=== PATIENT | female | born 2005 | race Caucasian/White ===

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

== ENCOUNTER 2025-01-26 14:22 | Emergency (ER) | payer MEDICAID, SELFPAY ==
[2025-01-26 14:27] VITALS: BP 158/117; PULSE 116; TEMP 36.7; O2SAT 98; BMI 25.0
--- NOTE | 2025-01-26 14:31 | ECG_ITS ---
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 Measurements Intervals [place] Rate: 119 P: 52 NM: 134 QRS: 46 QRSD: 84 T: 43 QT: 302 QTc: 426 Interpretive Statements SINUS TACHYCARDIA MINIMAL ST DEPRESSION [0.025+ mV ST DEPRESSION] ABNORMAL RHYTHM ECG INTERPRETATION BASED ON A DEFAULT AGE OF 40 YEARS No previous ECG available for comparison Electronically Signed On 01-26-2025 21:41:57 CDT by Ronal Mayo M.D. [id number]
[2025-01-26 18:05] VITALS: PULSE 96; RESP 17; O2SAT 100
[2025-01-26 18:59] LABS: HCG Qualitative Urine. Negative (Negative)
[2025-01-26 19:00] VITALS: BP 133/83; PULSE 92; RESP 20; O2SAT 98
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
[2025-01-26 19:05] LABS: Basophils % 0.4 %; Eosinophils # 0.1 10^3/uL (0.0-0.8); Eosinophils % 0.8 %; Hematocrit 39.9 % (36-47); Lymphocytes # 3.5 10^3/uL (1.5-6.5); Lymphocytes % 33.6 %; Mean Corpuscular HGB Conc 31.8 g/dL (30-55); Mean Corpuscular Hemoglobin 25.3 pg (27-33); Mean Corpuscular Volume 79.6 fl (85-98); Mean Platelet Volume 11.1 fL (7.4-10.4); Monocytes # 0.5 10^3/uL (0.2-0.9); Monocytes % 4.4 %; Neutrophils # 6.23 10^3/uL (1.8-8.0); Neutrophils % 60.5 %; Nucleated Red Blood Cells % 0 %; Platelet Count 273 10^3/cmm (157-399); Red Blood Count 5.01 10^6/uL (3.85-5.65); White Blood Count 10.28 10^3/uL (4.5-13.0)
[2025-01-26] MEDS: LORazepam 1 mg Tablet PO (19:10)
[2025-01-26] MEDS: sodium chloride 0.9% 1,000 ML 999 ML IV (19:11)
[2025-01-26 19:28] LABS: Troponin(5th) Baseline < 6 ng/L (0-10)
[2025-01-26 19:30] VITALS: BP 119/86; PULSE 76; RESP 14; O2SAT 95
--- NOTE | 2025-01-26 19:35 | W.ED.ARRPALP ---
HPI - Arrhythmia/Palpitations General: Chief Complaint: Arrhythmia/Palpitations Stated Complaint: chest pain Time Seen by Provider: 01/26/25 18:20 Source: patient Mode of arrival: ambulatory Limitations: no limitations History of Present Illness: Patient is a 19-year-old female who presents the emergency department complaining of chest pain beginning this morning at 0900. Patient states she had just drank an energy drink, when she had sudden onset central chest pain that felt like a brick on my chest. Also noted associated palpitations and shortness of breath. States that she has felt weird all day, pain at points is radiated into her neck and down her left arm, and states that currently her toes are tingling. Notes a history of anxiety and multiple panic attacks, states that she has figured that that is what was causing this but is concerned of the longevity of symptoms. Does not take anything for anxiety or panic. Also denies any pertinent cardiac history, also denying any family history of cardiac issues before the age of 30. Does not report anything specifically making her chest pain better or worse, does state that it seems to have eased up at this time. She is on control, SpO2 98% on room air at this time. Denies possibility of . Other than altering periods of tachycardia during exam, all of her vitals unremarkable. MD complaint: palpitations Onset (ago): hour(s) Duration: constant Severity: moderate Context: occurred during rest Arrhythmia history: on anti-coagulants Associated symptoms: Reports anxiety and short of breath; Deny nausea or vomiting Related Data Home Medications ?Medication ?Instructions ?Recorded ?Confirmed norgestimate-ethinyl estradiol ea PO 05/17/23 05/17/23 0.18 mg/0.215mg/0.25mg-35 mcg(28)tablet (Tri-Sprintec (28)) Allergies Allergy/AdvReac Type Severity Reaction Status Date / Time No Known Allergies Allergy Verified 01/26/25 14:35 Review of Systems General: Reports: 10 or more systems reviewed and unremarkable except in HPI and below Const: Denies: fever(s), chills or fatigue Eyes: Denies: change in vision ENMT: Denies: throat pain, ear or mastoid pain or nasal discharge Card: Reports: chest pain and palpitations; Denies: swelling of feet/ankles or lightheadedness Resp: Reports: dyspnea; Denies: productive cough or wheezing GI: Denies: abdominal pain, nausea, vomiting, diarrhea or constipation : Denies: flank pain, difficulty voiding, dysuria or urinary frequency Musc: Denies: neck pain, back pain or joint pain Skin/Breast: Denies: rash Neuro: Reports: numbness in extremities; Denies: headache(s) or weakness in extremities Psych: Reports: anxiety Physical Exam Const: COMMON NORMALS: patient oriented x3 and no limitations GENERAL APPEARANCE: cooperative, well developed and anxious ORIENTATION/CONSCIOUSNESS: Yes awake, Yes oriented to person, Yes oriented to place and Yes oriented to time HENMT: COMMON NORMALS: normocephalic, atraumatic and hearing grossly normal bilaterally HEAD & SCALP: normocephalic and atraumatic Eye: COMMON NORMALS: Equal, round and reactive pupils present, EOMs intact bilaterally and conjunctivae normal CONJUNCTIVA: Yes conjunctivae normal PUPIL: Yes Equal, round and reactive pupils present Neck/C-Spine: COMMON NORMALS: full ROM, supple and no JVD Resp: COMMON NORMALS: normal respiratory effort, No retractions, No use of accessory muscles and clear to auscultation bilaterally AUSCULTATION: clear to auscultation bilaterally Cardio: COMMON NORMALS: no JVD, regular rhythm, No clicks present (Cardio), No murmurs present (Cardio) and No rub (Cardio) RATE: tachycardic RHYTHM: regular rhythm GI: COMMON NORMALS: Normal to inspection, nondistended, normoactive bowel sounds present, Soft to palpation and non-tender AUSCULTATION: Yes normoactive bowel sounds PALPATION: Yes Soft to palpation RECTAL EXAM: deferred Extremity: COMMON NORMALS: normal to inspection, full ROM, capillary refill normal and no pedal edema Neuro: COMMON NORMALS: patient oriented x3, moves all extremities, no focal motor deficits and no sensory deficits noted SENSORIUM/ORIENTATION: Yes oriented to person, Yes oriented to place and Yes oriented to time Psych: COMMON NORMALS: mental status grossly normal and Normal thought process present THOUGHT PROCESS: Normal thought process present Skin: COMMON NORMALS: no rashes or lesions noted GENERAL SKIN EXAM: no rashes or lesions noted Course Vital Signs: Vital signs: Vital Signs Temperature 98.0 F 01/26/25 14:27 Pulse Rate 76 01/26/25 19:30 Respiratory Rate 14 01/26/25 19:30 Blood Pressure 119/86 01/26/25 19:30 Pulse Oximetry 95 01/26/25 19:30 Oxygen Delivery Me thod Room Air 01/26/25 14:27 MDM - Arrhythmia/Palpitations Medical Decision Making Patient presents for chest pain that began this morning, associate with shortness of breath, sensation changes in her left arm and lower extremities. Also reports of panic attacks and anxiety. No pertinent cardiac history or pertinent medical history otherwise, though she does not see a regular doctor. Intermittently tachycardic during exam, I suspect this is benign. Exam unremarkable. Her chest x-ray was normal. Lab work normal including negative troponin, negative D-dimer. I suspect this is related to panic attack/anxiety will have her establish with PCP for further outpatient evaluation. She was given Ativan here, states that this did help. Will be allowed discharge home with strict return precautions at which she verbalized understanding. Lab Data 01/26/25 18:55 01/26/25 18:55 Radiology Impressions Chest X-Ray 01/26/25 19:02 IMPRESSION: No acute findings. Laboratory Results WBC 10.28 10^3/uL (4.5-13.0) 01/26/25 18:55 RBC 5.01 10^6/uL (3.85-5.65) 01/26/25 18:55 Hgb 12.70 g/dL (12.4-14.8) 01/26/25 18:55 Hct 39.9 % (36-47) 01/26/25 18:55 MCV 79.6 fl (85-98) L 01/26/25 18:55 MCH 25.3 pg (27-33) L 01/26/25 18:55 MCHC 31.8 g/dL (30-55) 01/26/25 18:55 RDW 13.0 % (12.1-15.1) 01/26/25 18:55 Plt Count 273 10^3/cmm (157-399) 01/26/25 18:55 MPV 11.1 fL (7.4-10.4) H 01/26/25 18:55 Neut % (Auto) 60.5 % 01/26/25 18:55 Lymph % (Auto) 33.6 % 01/26/25 18:55 [place] % (Auto) 4.4 % 01/26/25 18:55 Eos % (Auto) 0.8 % 01/26/25 18:55 Baso % (Auto) 0.4 % 01/26/25 18:55 Neut # (Auto) 6.23 10^3/uL (1.8-8.0) 01/26/25 18:55 Lymph # (Auto) 3.5 10^3/uL (1.5-6.5) 01/26/25 18:55 [place] # (Auto) 0.5 10^3/uL (0.2-0.9) 01/26/25 18:55 Eos # (Auto) 0.1 10^3/uL (0.0-0.8) 01/26/25 18:55 Baso # (Auto) 0.0 10^3/uL (0.0-0.1) 01/26/25 18:55 Nucleated RBC % (auto) 0 % 01/26/25 18:55 Nucleated RBCs # 0.0 /100WBC 01/26/25 18:55 D-Dimer <= 0.27 ug/mLFEU (0-0.59) 01/26/25 18:55 Sodium 141 mmol/L (136-145) 01/26/25 18:55 Potassium 3.5 mmol/L (3.5-5.1) 01/26/25 18:55 Chloride 103 mmol/L (98-107) 01/26/25 18:55 Carbon Dioxide 23 mmol/L (22-29) 01/26/25 18:55 Anion Gap 18.5 (5-19) 01/26/25 18:55 BUN 13 mg/dL (6-20) 01/26/25 18:55 Creatinine 0.5 mg/dL (0.5-0.9) 01/26/25 18:55 GFR Calculation 157.3 mL/min (90-130) H 01/26/25 18:55 Glucose 90 mg/dL (65-115) 01/26/25 18:55 Calculated Osmolality 292 mOsm/kg (285-295) 01/26/25 18:55 Calcium 9.4 mg/dL (8.5-10.5) 01/26/25 18:55 Total Bilirubin 0.2 mg/dL (0.15-1.2) 01/26/25 18:55 AST 20 U/L (0-32) 01/26/25 18:55 ALT 19 U/L (0-33) 01/26/25 18:55 Alkaline Phosphatase 89 U/L (35-105) 01/26/25 18:55 Troponin T Baseline < 6 ng/L (0-10) 01/26/25 18:55 Total Protein 7.4 g/dL (6.6-8.7) 01/26/25 18:55 Albumin 4.7 g/dL (3.5-5.2) 01/26/25 18:55 Globulin 2.7 g/dL (1.3-4.6) 01/26/25 18:55 HCG, Qual Negative (Negative) 01/26/25 18:49 Urine Color Yellow (Yellow) 01/26/25 18:49 Urine Appearance Clear (CLEAR) 01/26/25 18:49 Urine pH 6 (5-7) 01/26/25 18:49 Ur Specific [place] 1.033 (1.005-1.030) H 01/26/25 18:49 Urine Protein Neg (Negative) 01/26/25 18:49 Urine Glucose (UA) Norm (Normal) 01/26/25 18:49 Urine Ketones Negative (Negative) 01/26/25 18:49 Urine Blood Neg (Negative) 01/26/25 18:49 Urine Nitrate Negative (Negative) 01/26/25 18:49 Urine Bilirubin Neg (Negative) 01/26/25 18:49 Urine Urobilinogen 1.0 mg/dL (Negative) 01/26/25 18:49 Ur Leukocyte Esterase Negative (Negative) 01/26/25 18:49 Urine RBC 3-5 /hpf (0-2) 01/26/25 18:49 Urine WBC 6-10 /hpf (0-5) 01/26/25 18:49 Ur Squamous Epith Cells 0-4 /hpf (0-5) H 01/26/25 18:49 Amorphous Sediment Not Reportable 01/26/25 18:49 Urine Bacteria 3+ /hpf (NONE) H 01/26/25 18:49 Hyaline Casts 4.53 /lpf 01/26/25 18:49 Urine Opiates Screen Negative ng/mL (Negative) 04/16/25 18:49 Ur Barbiturates Screen Negative ng/mL (Negative) 01/26/25 18:49 Ur Phencyclidine Scrn Negative ng/mL (Negative) 01/26/25 18:49 Ur Amphetamines Screen Negative ng/mL (Negative) 01/26/25 18:49 U Benzodiazepines Scrn Negative ng/mL (Negative) 01/26/25 18:49 Urine Cocaine Screen Negative ng/mL (Negative) 01/26/25 18:49 U Marijuana (THC) Screen Negative ng/mL (Negative) 01/26/25 18:49 All radiology interpretation(s) finalized by discharge Discharge Plan Discharge Patient Disposition: Home Clinical Impression: Anxiety Condition: Stable Prescriptions: No Action norgestimate-ethinyl estradiol [Tri-Sprintec (28)] 0.18/0.215/0.25 mg-35 mcg (28) tablet PO Discharge Orders: Discharge ED (Routine); Ordered 01/26/25 Ordered By: Abel Taylor Activity Restrictions/Additional Instructions: Please see your regular doctor for reevaluation. Return with any new or worsening. 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
[2025-01-26 19:40] LABS: Alanine Aminotransferase 19 U/L (0-33); Albumin Level 4.7 g/dL (3.5-5.2); Alkaline Phosphatase 89 U/L (35-105); Anion Gap 18.5 (5-19); Aspartate Amino Transferase 20 U/L (0-32); Blood Urea Nitrogen 13 mg/dL (6-20); Calcium 9.4 mg/dL (8.5-10.5); Carbon Dioxide 23 mmol/L (22-29); Chloride 103 mmol/L (98-107); Creatinine Clr Calc Pharmacy 186.9717; Globulin 2.7 g/dL (1.3-4.6); Glomerular Filtration Rate 157.3 mL/min (90-130); Glucose 90 mg/dL (65-115); Osmolality Calculated 292 mOsm/kg (285-295); Potassium 3.5 mmol/L (3.5-5.1); Sodium 141 mmol/L (136-145); Total Bilirubin 0.2 mg/dL (0.15-1.2); Total Protein 7.4 g/dL (6.6-8.7)
[2025-01-26 19:48] LABS: Amphetamines Screen Urine Negative (Negative); Barbiturates Screen Urine Negative (Negative); Benzodiazepines Screen Urine Negative (Negative); Cocaine Screen Urine Negative (Negative); Opiate Screen Urine Negative (Negative); PCP Screen Urine Negative (Negative); THC Screen Urine Negative (Negative)
[2025-01-26 20:12] LABS: Urine Color Yellow (Yellow)
[2025-01-26 20:13] LABS: D Dimer <= 0.27 ug/mLFEU (0-0.59)
[2025-01-26 20:13] LABS: Bacteria Urine 3+ /hpf; Bilirubin Urine Neg (Negative); Blood Urine Neg (Negative); Glucose Urine UA Norm (Normal); Hyaline Casts Urine 4.53 /lpf; Ketones Urine Negative (Negative); Leukocyte Esterase Urine Negative (Negative); Nitrate Urine Negative (Negative); Protein Urine Neg (Negative); Specific Gravity, Urine 1.033 (1.005-1.030); Squamous Epithelial Cell Urine 0-4 /hpf (0-5); Urine Appearance Clear (CLEAR); pH Urine 6 (5-7)
[2025-01-26 20:14] LABS: Add Urine Culture? No
--- NOTE | 2025-01-26 20:56 | ECG_ITS ---
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 Measurements Intervals [place] Rate: 87 P: 109 NC: 120 QRS: 39 QRSD: 89 T: 97 QT: 339 QTc: 409 Interpretive Statements SINUS RHYTHM WITH SINUS ARRHYTHMIA POSSIBLE LEFT ATRIAL ENLARGEMENT [-0.1mV P-WAVE IN V1/V2] MINIMAL ST DEPRESSION [0.025+ mV ST DEPRESSION] Compared to ECG 01/26/2025 14:31:00 Sinus tachycardia no longer present ST (T wave) deviation still present Electronically Signed On 01-26-2025 21:38:59 CDT by Ronal Mayo M.D. [id number]
[2025-01-26 21:13] LABS: Troponin 5 2HR Delta 0.00001 ABS# (0-10)
[2025-01-26 21:45] VITALS: BP 126/78; PULSE 80; O2SAT 100
--- NOTE | 2025-01-27 07:53 | DCPLANNER ---
messaged [facility] to establish PCP
== END 2025-01-26 21:04 | disposition home or self-care (01) ==
PROVIDERS: Emergency Medicine; Emergency Provider Physician Assistant
DX: F41.9 Anxiety disorder, unspecified (principal); R06.02 Shortness of breath
CPT/HCPCS: 36415; 71045; 80053; 80306; 81001; 81025; 84484; 85025; 85378; 93005; 96360; 99285; J7030; J9999

== ENCOUNTER → 2025-05-26 10:56 | Outpatient (BNVA) | payer SELFPAY | PROVIDERS: Visit Provider Nurse Practitioner Women's Health | DX: Z32.01 Encounter for pregnancy test, result positive (principal); N91.2 Amenorrhea, unspecified; N92.6 Irregular menstruation, unspecified | CPT/HCPCS: 80053; 82306; 82670; 83001; 83002; 83036; 83520; 83525; 84144; 84146; 84402; 84403; 84443; 84702; 85025 ==

== ENCOUNTER → 2025-05-30 11:46 | Outpatient (BNVA) | payer SELFPAY | PROVIDERS: Visit Provider Nurse Practitioner Women's Health | DX: N91.0 Primary amenorrhea (principal); R93.89 Abnormal findings on diagnostic imaging of other specified body structures | CPT/HCPCS: 76830 ==

== ENCOUNTER 2025-06-01 05:29 | Emergency (ER) | payer BC, MEDICAID, SELFPAY ==
[2025-06-01 05:30] VITALS: BP 141/94; PULSE 84; RESP 16; TEMP 37.1; O2SAT 98; BMI 31.3
--- NOTE | 2025-06-01 05:35 | ECG_ITS ---
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 Measurements Intervals [place] Rate: 91 P: 24 CA: 158 QRS: 14 QRSD: 89 T: 22 QT: 339 QTc: 419 Interpretive Statements SINUS RHYTHM POSSIBLE LEFT ATRIAL ENLARGEMENT [-0.1mV P-WAVE IN V1/V2] Compared to ECG 01/26/2025 20:56:05 Sinus arrhythmia no longer present ST (T wave) deviation no longer present Electronically Signed On 06-04-2025 08:54:05 CDT by Ezeqiuel Conrad M.D. [id number]
--- OUTSIDE RECORDS SUMMARY | 2025-06-01 05:38 | XMS_ITS | Clinical Summary ---
Author Organization [facility]re[facility] Address [address] [place] [address] Phone Care Team Providers Care Radiology Interventional Physician Name Role Phone Unavailable Primary Care Provider Unavailabl e Social History Tobacco Use Types Packs/Day Years Used Date Smoking Tobacco: Never Assessed Comments Unknown Sex and Gender Information Value Date Recorded Sex Assigned at Not on file Legal Sex Female 11:52 AM CDT Gender Identity Not on file Sexual Orientation Not on file Plan of Treatment Health Maintenance Due Date Last Done Comments CHLAMYDIA SCREENING (ANNUAL) 11-24 YEARS 2015 HPV VACCINES (1 - 3-dose series) 2019 DTAP/TDAP/TD VACCINES (1 - Tdap) 2023 HEPATITIS B VACCINES (1 of 3 - 19+ 3-dose series) 07/14 INFLUENZA VACCINE (#1) 2025
--- NOTE | 2025-06-01 05:41 | ED_ITS ---
HPI - Overdose General: Chief Complaint: Overdose Stated Complaint: overdose Time Seen by Provider: 06/01/25 05:38 History of Present Illness: Patient comes in by EMS after accidentally drinking dinotefuran which is a oconnell poison. She states she had oconnell bait stations out and was concerned her dog was getting into 1 and she dumped it into a cup. States she forgot about it and drink out of that same cup about 430 this morning which was about an hour and 15 minutes prior to arrival. Denies any symptoms including no stomach upset. We contacted poison control and they state that the dose she ingested is nontoxic and that most would cause mild GI upset. Physical exam is unremarkable. The patient is asymptomatic. Will discharge at this time with precautions to return for worsening or changing symptoms. Differential diagnosis: Accidental ingestion, intentional ingestion (patient denies intentional ingestion), Related Data Allergies Allergy/AdvReac Type Severity Reaction Status Date / Time No Known Allergies Allergy Verified 05/26/25 09:34 Review of Systems GI: Denies: abdominal pain, nausea or vomiting [facility] PFSH: Family History (Updated 05/26/25 @ 09:49 by Mary Ellen Clayton CMA) Grandmother Breast cancer Social History Smoking and tobacco/nicotine status: never used tobacco/nicotine Physical Exam Const: COMMON NORMALS: no acute distress, patient oriented x3, healthy appearing and alert HENMT: COMMON NORMALS: normocephalic and atraumatic HEAD & SCALP: normocephalic and atraumatic Neck/C-Spine: COMMON NORMALS: full ROM and supple Resp: COMMON NORMALS: normal respiratory effort, No retractions and No use of accessory muscles Cardio: COMMON NORMALS: regular rate and regular rhythm RATE: regular rate RHYTHM: regular rhythm GI: COMMON NORMALS: Soft to palpation and non-tender PALPATION: Yes Soft to palpation Extremity: COMMON NORMALS: normal to inspection and full ROM Neuro: COMMON NORMALS: patient oriented x3 SENSORIUM/ORIENTATION: Yes alert Psych: COMMON NORMALS: mental status grossly normal and cooperative Skin: COMMON NORMALS: no rashes or lesions noted and no wounds GENERAL SKIN EXAM: no rashes or lesions noted Course Vital Signs: Vital signs: Vital Signs Temperature 98.8 F 06/01/25 05:30 Pulse Rate 84 06/01/25 05:30 Respiratory Rate 16 06/01/25 05:30 Blood Pressure 141/94 06/01/25 05:30 Pulse Oximetry 98 06/01/25 05:30 Oxygen Delivery Me thod Room Air 06/01/25 05:30 MDM - Overdose Medical Decision Making na No radiology studies performed this visit Discharge Plan Discharge Patient Disposition: Home Clinical Impression: Accidental ingestion of substance Condition: Stable Discharge Orders: Discharge ED (Routine); Ordered 06/01/25 Ordered By: Bhaskar Bishop Patient Instructions: Patient Portal & Vu Instructions Print Language: Yi Coding Level of Care Code 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
[2025-06-01 05:44] VITALS: BP 135/91; PULSE 92; RESP 16; O2SAT 98
[2025-06-01 05:50] VITALS: BP 138/86; PULSE 85; O2SAT 98
== END 2025-06-01 06:00 | disposition home or self-care (01) ==
PROVIDERS: Emergency Provider Emergency Medicine
DX: T60.4X1A Toxic effect of rodenticides, accidental (unintentional), initial encounter (principal); X58.XXXA Exposure to other specified factors, initial encounter
CPT/HCPCS: 93005; 99283

== ENCOUNTER 2025-06-06 09:45 | Outpatient (CLI) | payer BC, MEDICAID, SELFPAY | END 2025-06-06 09:46 | disposition home or self-care (01) | LOC: LAB 09:48 | PROVIDERS: Visit Provider Nurse Practitioner Women's Health | DX: Z01.89 Encounter for other specified special examinations (principal) | CPT/HCPCS: 36415; 83036 ==